=== PATIENT | female | born 1990 | race Caucasian/White ===

== ENCOUNTER 2023-02-21 15:46 | Emergency (ER) | payer SELFPAY ==
[~2023-02-21] VITALS: Ht 154.9 cm; Wt 55.3 kg
[2023-02-21 15:58] VITALS: BP 115/68
[2023-02-21] MEDS ORDERED: LORazepam 1 MG TAB PO ONE (16:25)
--- NOTE | 2023-02-21 16:33 | NUR ---
PT C/O RAPID HR, ANXIETY, SOB SINCE THIS AM. BREATHING UNLABERED. NAD, SAFETY MAINTAINED.
[2023-02-21] MEDS ORDERED: ATA25 PO (17:23)
[2023-02-21 18:00] VITALS: BP 109/80
--- NOTE | 2023-02-21 18:00 | NUR ---
Patient discharged with v/s stable. Written and verbal after care instructions given and explained. Patient alert, oriented and verbalized understanding of instructions. Ambulatory with steady gait. All questions addressed prior to discharge. ID band removed. Patient advised to follow up with PMD. Rx of HYDROXYZINE given. Patient educated on indication of medication including possible reaction and side effects. Opportunity to ask questions provided and answered.
== END 2023-02-21 18:00 | disposition home or self-care (01) ==
LOC: MED 15:46
DX: F41.9 Anxiety disorder, unspecified (principal); Z79.899 Other long term (current) drug therapy
CPT/HCPCS: 93005; 99283